=== PATIENT | female | born 1985 | race Hispanic/Latino ===

== ENCOUNTER 2018-03-22 10:19 | Emergency (ER) | payer MEDICAID, OTHER ==
[2018-03-22 10:56] VITALS: BP 143/81; PULSE 73; RESP 18; TEMP 99; O2SAT 98
--- NOTE | 2018-03-22 12:49 | ED PDOC ---
HPI: Headache Time Seen by Provider: 03/22/18 11:23 Chief Complaint (Nursing): Headache Chief Complaint (Provider): Dizziness History Per: Patient History/Exam Limitations: no limitations Onset/Duration Of Symptoms: Days (weeks) Current Symptoms Are (Timing): Still Present Preceeding Symptoms: None Associated Symptoms: Nausea, Vomiting. denies: Photophobia, Blurred Vision, Extremity Weakness Additional Complaint(s): 33 y/o F with hx of anxiety/depresison who presents c/o dizziness/lightheadedness and "not feeling right" for the past few weeks. Pt states that approximately 1 month ago she fell forward onto a table with + LOC in the setting of drinking heavily. She did not have any medical evaluation. The following week she fell backwards in a parking lot, again in the setting of drinking, and hit the back of her head on the ground, no LOC at that time. The week after that she again fell backwards in the street striking the back of her head but no LOC. Two days after the last fall, she had an episode of N/V and has had one more episode since. She states that since the first fall she feels that her gait is "off" and "doesn't feel right". + Lightheadedness and intermittent AUGUSTE. She took 2 Advil this morning and currently has mild throbbing but no pain and does not want any pain meds. Denies visual disturbance, no palpitations, no diarrhea, fevers/chills/night sweats, neck pain. Past Medical History Reviewed: Historical Data, Nursing Documentation, Vital Signs Vital Signs: Last Vital Signs Temp 99.0 F 03/22/18 10:55 Pulse 73 03/22/18 10:55 Resp 18 03/22/18 10:55 BP 143/81 03/22/18 10:55 Pulse Ox 98 03/22/18 10:55 - Medical History PMH: Anxiety - Family History Family History: States: CAD (CABG - brother ), Hypertension - Social History Current smoker - smoking cessation education provided: No Ex-Smoker (has not smoked in the last 12 months): No Alcohol: Other (drinks heavily on weekends) Drugs: Denies - Immunization History Hx Tetanus Toxoid Vaccination: Yes - Home Medications Home Medications: Ambulatory Orders Medication Instructions Recorded Acetaminophen/Oxycodone Hydr 1 tab PO Q6 PRN #10 tab 01/16/14 [Percocet 325 mg-5 mg] Cephalexin [Keflex] 500 mg PO BID #20 cap 01/16/14 Sulfamethoxazole/Trimethopri 1 tab PO BID #20 tab 01/16/14 [Bactrim Ds 800 mg-160 mg] Ibuprofen [Motrin Tab] 600 mg PO Q8H PRN #20 tab 01/18/14 Sulfamethoxazole/Trimethopri 1 tab PO BID #20 tab 05/15/14 [Bactrim Ds 800 mg-160 mg] - Allergies Allergies/Adverse Reactions: Allergies Allergy/AdvReac Type Severity Reaction Status Date / Time No Known Allergies Allergy Verified 01/16/14 13:47 Physical Exam - Reviewed Nursing Documentation Reviewed: Yes Vital Signs Reviewed: Yes - Physical Exam Appears: Positive for: Uncomfortable Head Exam: Positive for: ATRAUMATIC Skin: Positive for: Normal Color Eye Exam: Positive for: Normal appearance, EOMI, PERRL Neck: Positive for: Painless ROM, Supple Cardiovascular/Chest: Positive for: Regular Rate, Rhythm Respiratory: Positive for: Normal Breath Sounds Gastrointestinal/Abdominal: Positive for: Normal Exam Back: Positive for: Normal Inspection. Negative for: Vertebral Tenderness, Decreased ROM Extremity: Positive for: Normal ROM (flexion and extension at shoulders, hip, knees, elbow. ) Lymphatic: Positive for: Normal Exam Neurologic/Psych: Positive for: Alert, Oriented, Mood/Affect (appropriate), Gait (normal), Other (normal proprioception). Negative for: Motor/Sensory Deficits, Aphasia, Facial Droop - Laboratory Results Result Diagrams: 03/22/18 12:55 03/22/18 12:55 - ECG O2 Sat by Pulse Oximetry: 98 Medical Decision Making Medical Decision Making: CBC, CMP Urine preg Head CT w/o contrast EKG: sinus, HR 62, non-specific T wave changes in inferior leads. Pt endorsed to KALANI Barber pending Head CT results Disposition - Clinical Impression Clinical Impression: Headache, Concussion - Patient ED Disposition Is Patient to be Admitted: Transfer of Care - Disposition Disposition: Transfer of Care Disposition Time: 13:30 Condition: STABLE Additional Instructions: follow up with your PMD Instructions: Concussion, Adult (DC), Headache, Adult (DC) Forms: [employer] (Macedonian)
[2018-03-22 13:11] LABS: BASO # 0.1 K/uL (0.0-0.2); BASO % 1.2 % (0.0-2.0); EOS # 0.2 K/uL (0.0-0.7); EOS % 2.6 % (0.0-4.0); HEMOGLOBIN 14.4 g/dL (12.0-16.0); LYMPH # 1.8 K/uL (1.0-4.3); MEAN CELL VOLUME 95.5 fl (81.0-99.0); MEAN CORPUSCULAR HEMOGLOBIN 32.2 pg (27.0-31.0); MEAN CORPUSCULAR HGB CONC 33.7 g/dL (33.0-37.0); MEAN PLATELET VOLUME 8.2 fl (7.2-11.7); MONO # 0.5 K/uL (0.0-0.8); MONO % 8.2 % (0.0-10.0); NEUT # 3.5 K/uL (1.8-7.0); NRBC % 0.1 % (0.0-0.0); RBC 4.48 Mil/uL (3.80-5.20); RED CELL DISTRIBUTION WIDTH 13.4 % (11.5-14.5)
--- NOTE | 2018-03-22 13:17 | CT ---
Date of service: 03/22/2018 PROCEDURE: CT HEAD WITHOUT CONTRAST. HISTORY: s/p head trauma x 3, + dizziness COMPARISON: None available. TECHNIQUE: Axial computed tomography images were obtained through the head/brain without intravenous contrast. Supplemental Coronal and Sagittal projections created and reviewed. Radiation dose: Total exam DLP = 768.39 mGy-cm. This CT exam was performed using one or more of the following dose reduction techniques: Automated exposure control, adjustment of the mA and/or kV according to patient size, and/or use of iterative reconstruction technique. FINDINGS: HEMORRHAGE: No intracranial hemorrhage. BRAIN: No mass effect or edema. No atrophy or chronic microvascular ischemic changes. VENTRICLES: Unremarkable. No hydrocephalus. CALVARIUM: Unremarkable. PARANASAL SINUSES: Unremarkable as visualized. No significant inflammatory changes. MASTOID AIR CELLS: Unremarkable as visualized. No inflammatory changes. OTHER FINDINGS: None. IMPRESSION: No acute intracranial abnormalities. No significant findings to account for the clinical presentation.
[2018-03-22 14:08] LABS: BLOOD UREA NITROGEN 21 mg/dl (7-17); GFR NON-AFRICAN AMERICAN > 60
[2018-03-22 14:19] LABS: CALCIUM 9.5 mg/dL (8.4-10.2)
--- NOTE | 2018-03-22 14:19 | ED PDOC ---
- Laboratory Results Result Diagrams: 03/22/18 12:55 03/22/18 12:55 - ECG O2 Sat by Pulse Oximetry: 98 (RA) Pulse Ox Interpretation: Normal Medical Decision Making Medical Decision Makin:00 Patient care was transferred over to Nieves Barber PA-C. Scribe Attestation: Documented by Donovan Araujo, acting as a scribe for Nieves Barber PA-C. Provider Scribe Attestation: All medical record entries made by the Scribe were at my direction and personally dictated by me. I have reviewed the chart and agree that the record a ccurately reflects my personal performance of the history, physical exam, medical decision making, and the department course for this patient. I have also personally directed, reviewed, and agree with the discharge instructions and disposition. Disposition - Clinical Impression Clinical Impression: Headache, Concussion - POA Present On Arrival: None - Disposition Disposition: Routine/Home Disposition Time: 14:20 Condition: STABLE Additional Instructions: follow up with your PMD Instructions: Concussion, Adult (DC), Headache, Adult (DC) Forms: [employer] (Wolof)
[2018-03-22 14:20] LABS: ALB/GLOB RATIO 1.4 (1.0-2.1); ALBUMIN 4.4 g/dL (3.5-5.0); AST/SGOT 22 U/L (14-36)
[2018-03-22 14:22] LABS: ALT/SGPT 35 U/L (9-52)
--- NOTE | 2018-03-23 06:58 | CARD ---
APPROVED REPORT Date of service: 03/22/2018 EKG Measurement Heart [id number] <Conclusion> Normal sinus rhythm Normal ECG
== END 2018-03-22 14:23 | disposition home or self-care (01) ==
LOC: H.ER 10:19
DX: R51 Headache (principal); S06.0X0A Concussion without loss of consciousness, initial encounter; Z82.49 Family history of ischemic heart disease and other diseases of the circulatory system; Z87.891 Personal history of nicotine dependence; F41.9 Anxiety disorder, unspecified